=== PATIENT | female | born 1990 | race Caucasian/White ===

== ENCOUNTER 2017-12-23 17:23 | Emergency (ER) | payer SELFPAY | END 2017-12-23 17:40 | disposition left against medical advice (07) | LOC: ED 17:23 | DX: R52 Pain, unspecified (principal); Z53.21 Procedure and treatment not carried out due to patient leaving prior to being seen by health care provider ==

== ENCOUNTER 2019-08-03 00:40 | Emergency (ER) | payer SELFPAY ==
[2019-08-03] MEDS ORDERED: TYLENOL PO ONE (03:23)
[2019-08-03] MEDS ORDERED: IBUPROFEN PO ONE ×2 (03:23→06:24)
[2019-08-03 03:57] LABS: Bilirubin,Urine NEG (Negative); Blood,Urine NEG (Negative); Color,Urine Yellow (Yellow); Mucus,Urine FEW /HPF; Protein,Urine <15 mg/dL mg/dL (Negative); Urobilinogen,Urine < 2.0 mg/dL (<2.0); WBC,Urine < 1.0 /HPF (0.0-6.0)
[2019-08-03 04:01] LABS: HCG Qualitative,Urine Negative (Negative)
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
[2019-08-03 06:14] VITALS: BP 130/85
[2019-08-03] MEDS ORDERED: TYLENOL ONE (06:24)
== END 2019-08-03 06:27 | disposition home or self-care (01) ==
LOC: ED 00:40
DX: S43.91XA Sprain of unspecified parts of right shoulder girdle, initial encounter (principal); M62.838 Other muscle spasm; M54.6 Pain in thoracic spine; F17.200 Nicotine dependence, unspecified, uncomplicated; Z79.899 Other long term (current) drug therapy; Y04.0XXA Assault by unarmed brawl or fight, initial encounter; Y93.89 Activity, other specified; Y92.89 Other specified places as the place of occurrence of the external cause; Y99.8 Other external cause status
CPT/HCPCS: 72040; 72070; 81001; 81025